=== PATIENT | male | born 1995 | race African-American/Black ===

== ENCOUNTER 2020-12-30 21:34 | Emergency (ER) | payer OTHER ==
[2020-12-30 22:15] LABS: BILIRUBIN,URINE NEGATIVE (NEGATIVE); CLARITY,URINE CLEAR (CLEAR); GLUCOSE, URINE (UA) NEGATIVE (NEGATIVE); KETONES,URINE (UA) 15 mg/dL (NEGATIVE); LEUKOCYTE ESTERASE, URINE NEGATIVE (NEGATIVE); NITRITE,URINE NEGATIVE (NEGATIVE); OCCULT BLOOD,URINE NEGATIVE (NEGATIVE); PH,URINE 5.5 PH (5.0-7.5); PROTEIN,URINE NEGATIVE (NEGATIVE); UROBILINOGEN,URINE 0.2 (NORMAL) E.U./dL (NORMAL)
[2020-12-30 22:31] LABS: RAPID STREP SCREEN Negative (Negative)
--- NOTE | 2020-12-30 23:10 | ED Physician Documentation ---
History of Present Illness - Stated complaint Stated Complaint: DIARRHEA, SORE THROAT, MALE - Chief complaint Chief Complaint: Heent - History obtained from History obtained from: Patient - Additonal information Additional information: 25-year-old man, currently employed in the [employer], presents with chronic diarrhea over the past year as well as epigastric burning pain that is mild, gradual in onset, associated with food, radiating up to the throat and causing a sore throat over the past couple of days. Patient is requesting a note for work to modify his diet, because he is concerned that the food the [employer] provides is different from his diet that he used to eat. Patient is also concerned because he has had mild intermittent sharp pain with urination over the past few days and is requesting STI test. Review of Systems Ten Systems: 10 systems reviewed and negative Constitutional: denies: Fever, Chills Throat: reports: Sore throat Cardiac: denies: Chest pain / pressure Respiratory: denies: Dyspnea GI: reports: Abdominal Pain, Diarrhea. denies: Nausea, Vomiting : reports: Dysuria PD PAST MEDICAL HISTORY - Past Medical History Past Medical History: No Cardiovascular: None Respiratory: None Neuro: None Endocrine/Autoimmune: None GI: None : None HEENT: None Psych: None Musculoskeletal: None Derm: None - Past Surgical History Past Surgical History: No - Present Medications Home Medications: Ambulatory Orders Medication Instructions Recorded Confirmed No Known Home Medications 12/30/20 12/30/20 - Allergies Allergies/Adverse Reactions: Allergies Allergy/AdvReac Type Severity Reaction Status Date / Time No Known Drug Allergies Allergy Verified 12/30/20 21:58 - Social History Does the pt smoke?: Yes Smoking Status: Current every day smoker Does the pt drink ETOH?: Yes Does the pt have substance abuse?: No - Immunizations Immunizations are current?: Yes - POLST Patient has POLST: No PD ED PE NORMAL - Vitals Vital signs reviewed: Yes - General General: Alert and oriented X 3, No acute distress, Well developed/nourished - HEENT HEENT: Atraumatic, PERRL, EOMI - Neck Neck: Supple, no meningeal sign - Cardiac Cardiac: RRR - Respiratory Respiratory: No respiratory distress, Clear bilaterally - Abdomen Abdomen: Non tender, Non distended - Derm Derm: Normal color, Warm and dry - Extremities Extremities: No deformity - Neuro Neuro: Alert and oriented X 3 - Psych Psych: Normal mood, Normal affect Results - Vitals Vitals: Vital Signs - 24 hr 12/30/20 12/30/20 12/30/20 21:56 22:42 23:19 Temperature 36.7 C 37.1 C Heart Rate 66 89 Respiratory 16 15 12 Rate Blood Pressure 141/81 H 153/71 H O2 Saturation 100 100 12/30/20 23:22 Temperature Heart Rate Respiratory 15 Rate Blood Pressure O2 Saturation Oxygen O2 Source Room air - Labs Labs: Laboratory Tests 12/30/20 12/30/20 12/30/20 21:58 21:58 22:20 Urine Color YELLOW Urine Clarity CLEAR Urine pH 5.5 Ur Specific [place] >=1.030 H Urine Protein NEGATIVE Urine Glucose (UA) NEGATIVE Urine Ketones 15 H Urine Occult Blood NEGATIVE Urine Nitrite NEGATIVE Urine Bilirubin NEGATIVE Urine Urobilinogen 0.2 (NORMAL) Ur Leukocyte Esterase NEGATIVE Ur Microscopic Review NOT INDICATED Urine Culture Comments NOT INDICATED Chlam trachomat DNA PCR NEGATIVE N.gonorrhoeae DNA (PCR) NEGATIVE Group A Strep Rapid Negative T. vaginalis (PCR) TNP PD MEDICAL DECISION MAKING - ED course ED course: 25-year-old man presents with chronic diarrhea and likely gastric upset versus gastroesophageal reflux. I advised the patient that he should follow-up with [facility] for referral to gastroenterology. He requested I write him a note for work and I obliged. Return precautions given. Departure - Departure Disposition: 01 Home, Self Care Clinical Impression: Chronic diarrhea, Acid reflux Condition: Good Instructions: GERD Dc Follow-Up: JORGE VILLARREAL MD [Physician No Access] - Comments: You were seen in the emergency department for diarrhea, throat pain, and pain with urination. Your strep test was negative, meaning that you do not have strep throat. Your urine test was normal, meaning you have no infection. Your diarrhea may be related to diet, but you should go to see a novelties sales representative for further evaluation. Please return to the emergency department if you have any new or worsening symptoms or other concerns. I hope you feel better! Forms: Activity restrictions Discharge Date/Time: 12/30/20 23:23
[2020-12-30 23:19] VITALS: BP 153/71
[2020-12-31 03:53] LABS: CHLAMYDIA TRACHOMATIS DNA NEGATIVE (NEGATIVE); NEISSERIA GONORRHOEAE DNA NEGATIVE (NEGATIVE)
== END 2020-12-30 23:23 | disposition home or self-care (01) ==
LOC: ED 21:34
DX: K52.9 Noninfective gastroenteritis and colitis, unspecified (principal); K21.9 Gastro-esophageal reflux disease without esophagitis; J02.9 Acute pharyngitis, unspecified; R30.0 Dysuria; F17.200 Nicotine dependence, unspecified, uncomplicated
CPT/HCPCS: 81001; 81003; 86703; 87070; 87086; 87430; 87491; 87591; 87661; 99281; 99282

== ENCOUNTER 2021-01-01 02:03 | Emergency (ER) | payer OTHER ==
[2021-01-01 02:27] LABS: BILIRUBIN,URINE NEGATIVE (NEGATIVE); GLUCOSE, URINE (UA) NEGATIVE (NEGATIVE); KETONES,URINE (UA) NEGATIVE (NEGATIVE); LEUKOCYTE ESTERASE, URINE NEGATIVE (NEGATIVE); NITRITE,URINE NEGATIVE (NEGATIVE); OCCULT BLOOD,URINE TRACE-INTA (NEGATIVE); PROTEIN,URINE NEGATIVE (NEGATIVE); UROBILINOGEN,URINE 0.2 (NORMAL) E.U./dL (NORMAL)
[2021-01-01 02:30] LABS: CLARITY,URINE CLEAR (CLEAR)
[2021-01-01 02:36] LABS: BACTERIA,URINE Rare /HPF (None Seen); RBC,URINE 0-5 /HPF (0-5); SQUAMOUS EPITHELIAL CELL,UR RARE Squamous (<= Few)
--- NOTE | 2021-01-01 02:53 | ED Physician Documentation ---
History of Present Illness - Stated complaint Stated Complaint: MALE - Chief complaint Chief Complaint: General - History obtained from History obtained from: Patient - Additonal information Additional information: 25-year-old man presents with concern again that he has a sexually transmitted infection. He states that he is on his patient health portal that he was negative for gonorrhea and chlamydia, but he is having persistent dysuria and noticed some clear whitish discharge that he does not usually have today. Denies fever, abdominal pain, back pain, lesions, bugs/lice, warts. Review of Systems Constitutional: denies: Fever, Chills : reports: Dysuria. denies: Testicular pain Skin: denies: Lesions, Laceration (s), Bite / sting PD PAST MEDICAL HISTORY - Past Medical History Past Medical History: No Cardiovascular: None Respiratory: None Neuro: None Endocrine/Autoimmune: None GI: None : None HEENT: None Psych: None Musculoskeletal: None Derm: None - Past Surgical History Past Surgical History: No - Present Medications Home Medications: Ambulatory Orders Medication Instructions Recorded Confirmed No Known Home Medications 12/30/20 01/01/21 - Allergies Allergies/Adverse Reactions: Allergies Allergy/AdvReac Type Severity Reaction Status Date / Time No Known Drug Allergies Allergy Verified 01/01/21 02:14 - Social History Does the pt smoke?: Yes Smoking Status: Current every day smoker Does the pt drink ETOH?: Yes Does the pt have substance abuse?: No - Immunizations Immunizations are current?: Yes - POLST Patient has POLST: No PD ED PE NORMAL - Vitals Vital signs reviewed: Yes - General General: Alert and oriented X 3, No acute distress - HEENT HEENT: Atraumatic, PERRL, EOMI - Male 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 Small amount of clear fluid at the meatus. Patient states this is the fluid t hat he was concerned about.) - Derm Derm: Normal color, Warm and dry - Neuro Neuro: Alert and oriented X 3 - Psych Psych: Normal mood, Normal affect Results - Vitals Vitals: Vital Signs - 24 hr 01/01/21 01/01/21 02:11 04:17 Temperature 35.9 C L Heart Rate 67 75 Respiratory 15 15 Rate Blood Pressure 144/68 H 147/66 H O2 Saturation 100 99 Oxygen O2 Source Room air - Labs Labs: Laboratory Tests 01/01/21 01/01/21 02:20 03:11 Urine Color YELLOW Urine Clarity CLEAR Urine pH 6.0 Ur Specific [place] 1.015 Urine Protein NEGATIVE Urine Glucose (UA) NEGATIVE Urine Ketones NEGATIVE Urine Occult Blood TRACE-INTA Urine Nitrite NEGATIVE Urine Bilirubin NEGATIVE Urine Urobilinogen 0.2 (NORMAL) Ur Leukocyte Esterase NEGATIVE Urine RBC 0-5 Urine WBC 6-10 H Ur Squamous Epith Cells RARE Squamous Urine Bacteria Rare Urine Culture Comments NOT INDICATED HIV 1&2 Antibody Rapid NEGATIVE PD MEDICAL DECISION MAKING - ED course ED course: 25-year-old man presents with persistent concern for STI despite negative STI testing. Reassured him and offered to complete an HIV and herpes test. Urinalysis resent and noncontributory. Patient requested that I write a referral. I stated that he probably will need to follow-up with [facility] for referral, but I can do one for him. Return precautions given. Departure - Departure Disposition: 01 Home, Self Care Clinical Impression: Dysuria Condition: Good Instructions: ED Dysuria Uncertain Cause Follow-Up: Jailene Moncada MD [Physician No Access] - Comments: I would like to refer Chandrakant Chen to gastroenterology for evaluation of his chronic ongoing diarrhea. Should you have any questions you may call [facility]. All the best, Dr. Sailaja Smith M.D.
[2021-01-01 03:37] LABS: HIV RAPID SCREEN NEGATIVE (NEGATIVE)
[2021-01-01 04:18] VITALS: BP 147/66
[2021-01-03 11:12] LABS: HSV 1 DNA NOT DETECTED; HSV 2 DNA NOT DETECTED; SOURCE SERUM
[2021-01-05 15:31] LABS: HSV 1 IGG TYPE SPECIFIC AB <0.90 index; HSV 2 IGG TYPE SPECIFIC AB <0.90 index
== END 2021-01-01 05:12 | disposition home or self-care (01) ==
LOC: ED 02:03
DX: R30.0 Dysuria (principal); Z11.3 Encounter for screening for infections with a predominantly sexual mode of transmission; Z11.4 Encounter for screening for human immunodeficiency virus [HIV]; F17.200 Nicotine dependence, unspecified, uncomplicated
CPT/HCPCS: 36415; 81001; 86695; 86696; 86703; 87086; 87491; 87529; 87591; 87661; 99283; 99284